=== PATIENT | male | born 1960 | race Caucasian/White ===

== ENCOUNTER 2018-11-27 14:37 | Emergency (ER) | payer OTHER ==
[~2018-11-27] VITALS: Ht 188 cm; Wt 100.0 kg
[2018-11-27] MEDS ORDERED: SODIUM CHLORIDE 0.9% 1,000 ML IV ONE ×2 (16:31→21:02)
[2018-11-27] MEDS ORDERED: LORAZEPAM 2MG/ML CPJ IV ONE ×2 (16:45→23:00)
[2018-11-27 17:30] LABS: BASOPHILS % 0.6 % (0.0-2.0); EOSINOPHILS % 1.3 % (0.0-5.0); HEMATOCRIT. 39.6 % (42.0-52.0); HEMOGLOBIN. 14.1 g/dL (14.0-18.0); LYMPHOCYTES % 20.9 % (20.0-50.0); MEAN CORPUSCULAR HEMOGLOBIN 30.7 pg (28.0-32.0); MEAN CORPUSCULAR VOLUME 86.1 fL (80.0-94.0); MEAN PLATELET VOLUME 8.3 fl (7.4-10.4); MONOCYTES % 11.7 % (2.0-8.0); NEUTROPHILS % 65.5 % (40.0-76.0); PLATELET 264 x1000/uL (130-400); RED CELL DISTRIBUTION WIDTH 13.3 % (11.6-14.6)
[2018-11-27 17:37] LABS: CHLORIDE 100 mEq/L (98-107)
[2018-11-27 17:41] LABS: ETHANOL BLOOD < 10 mg/dL
[2018-11-28 13:30] VITALS: BP 122/70
== END 2018-11-28 15:48 | disposition home or self-care (01) ==
LOC: ER 14:37
DX: F15.10 Other stimulant abuse, uncomplicated (principal); F23 Brief psychotic disorder; F41.9 Anxiety disorder, unspecified; F32.9 Major depressive disorder, single episode, unspecified
CPT/HCPCS: 36415; 80048; 80307; 80320; 80329; 85025; 96374; 96376; 99283; J2060; J7030; G0480